=== PATIENT | female | born 1975 | race Caucasian/White ===

== ENCOUNTER 2016-10-12 09:45 | Emergency (ER) | payer MEDICAID ==
[~2016-10-12] VITALS: Ht 160 cm; Wt 90.7 kg
[~2016-10-12 09:45] MED LIST: ASPI-515 PO; LEVO25TA2 PO; SIMV20TA3 PO; TRAZ100T15 PO
[2016-10-12 09:47] VITALS: BP 124/84
[2016-10-12] MEDS ORDERED: BACITRACIN ZINC OINT 500U/GM, 0.9 GM ONE ×2 (11:13→11:26)
[2016-10-12 12:59] LABS: HIV 1&2 ANTIBODY SCREEN Nonreactive (Nonreactive); HIV-1 p24 ANTIGEN Nonreactive (Nonreactive)
[2016-10-13 00:13] LABS: HEP B SURF. AB 6.3 mIU/mL (0.0-10.0)
== END 2016-10-12 11:33 | disposition home or self-care (01) ==
LOC: ED 10:25
DX: S61.031A Puncture wound without foreign body of right thumb without damage to nail, initial encounter (principal); F17.210 Nicotine dependence, cigarettes, uncomplicated; E78.5 Hyperlipidemia, unspecified; I10 Essential (primary) hypertension; E11.9 Type 2 diabetes mellitus without complications; W19.XXXA Unspecified fall, initial encounter; Y93.89 Activity, other specified; Y92.89 Other specified places as the place of occurrence of the external cause; Y99.8 Other external cause status
CPT/HCPCS: 36415; 86703; 86705; 86706; 86803; 87340; 87899; 99284; G0435

== ENCOUNTER 2016-11-07 18:02 | Emergency (ER) | payer MEDICAID ==
[~2016-11-07] VITALS: Ht 160 cm; Wt 90.5 kg
[2016-11-07 18:16] VITALS: BP 118/80
[2016-11-07] MEDS ORDERED: ACETAMINOPHEN 325 MG TABLET PO ONE (19:00)
[2016-11-07] MEDS ORDERED: ACETAMINOPHEN 325 MG TABLET ONE (19:42)
== END 2016-11-07 19:50 | disposition home or self-care (01) ==
LOC: ED 19:44
DX: S63.522A Sprain of radiocarpal joint of left wrist, initial encounter (principal); X50.9XXA Other and unspecified overexertion or strenuous movements or postures, initial encounter; Y93.89 Activity, other specified; Y99.8 Other external cause status; Y92.89 Other specified places as the place of occurrence of the external cause
CPT/HCPCS: 29125; 99284

== ENCOUNTER 2016-12-31 17:44 | Emergency (ER) | payer MEDICAID ==
[~2016-12-31] VITALS: Ht 160 cm; Wt 90.7 kg
[2016-12-31 17:48] VITALS: BP 141/84
== END 2016-12-31 19:39 | disposition home or self-care (01) ==
LOC: ED 18:00
DX: M77.9 Enthesopathy, unspecified (principal); M25.532 Pain in left wrist
CPT/HCPCS: 29125

== ENCOUNTER 2017-05-14 10:49 | Emergency (ER) | payer MEDICAID ==
[~2017-05-14] VITALS: Ht 160 cm; Wt 96.8 kg
[2017-05-14] MEDS ORDERED: KETOROLAC 30 MG/1 ML IM ONE (12:30)
[2017-05-14] MEDS ORDERED: KETOROLAC 30 MG/1 ML ONE (12:38)
[2017-05-14 13:21] VITALS: BP 142/105
== END 2017-05-14 13:24 | disposition home or self-care (01) ==
LOC: ED 13:18
DX: M79.662 Pain in left lower leg (principal); M72.2 Plantar fascial fibromatosis; G56.01 Carpal tunnel syndrome, right upper limb; G89.29 Other chronic pain; I10 Essential (primary) hypertension; E78.5 Hyperlipidemia, unspecified
CPT/HCPCS: 73590; 96372; 99284; J1885

== ENCOUNTER 2019-07-19 20:23 | Emergency (ER) | payer MEDICAID ==
[~2019-07-19] VITALS: Ht 160 cm; Wt 102.1 kg
[~2019-07-19 20:23] MED LIST changes: +SIMV20TA19 PO; -SIMV20TA3 PO; +TRAZ-175 PO; -TRAZ100T15 PO
--- NOTE | 2019-07-19 20:45 | NUR ---
DESIGN DIRECTOR: PT'S RIDE HOME TO CALL PER PT IF DISCHARGED. VALENTINA [phone], BACKUP CALL TO SIGNIFICANT OTHER MANAV [phone] IF VALENTINA DOES NOT ANSWER
[2019-07-19] MEDS ORDERED: ALBUTEROL SULFATE 2.5 MG/3 ML NPPB ONE (21:00)
[2019-07-19] MEDS ORDERED: ALBUTEROL SULFATE 2.5 MG/3 ML ONE ×2 (21:04→22:16)
--- NOTE | 2019-07-19 22:29 | NUR ---
SECOND BREATHING TREATMENT STARTED. PATIENT VERBALIZED UNDERSTANDING OF BREATHING TREATMENT AND METHODS OF INHALATION. NO NOTED ACUTE DISTRESS. PATIENT UPDATED ON PLAN OF CARE.
[2019-07-19] MEDS ORDERED: ALBUTEROL/IPRATROPIUM 2.5MG/0.5MG, 3 ML NPPB ONE (22:30)
[2019-07-19 22:40] VITALS: BP 154/81
--- NOTE | 2019-07-19 22:48 | NUR ---
PATIENT'S DC RIDE HOME CALLED.
== END 2019-07-19 22:56 | disposition home or self-care (01) ==
LOC: ED 21:31
DX: J45.31 Mild persistent asthma with (acute) exacerbation (principal); R94.31 Abnormal electrocardiogram [ECG] [EKG]
CPT/HCPCS: 71045; 93005; 94640; 99284; J7512; J7613

== ENCOUNTER 2019-10-23 21:16 | Emergency (ER) | payer MEDICAID ==
[~2019-10-23] VITALS: Ht 160 cm; Wt 95.3 kg
[2019-10-23] MEDS ORDERED: IBUPROFEN 600 MG TABLET PO ONE (22:00)
[2019-10-23] MEDS ORDERED: IBUPROFEN 600 MG TABLET ONE (22:11)
[2019-10-23 23:23] VITALS: BP 125/74
--- NOTE | 2019-10-23 23:24 | NUR ---
Splint applied by poured concrete wall technician. (+) CSM. Denies numbness/tingling. Verbalizes understanding r/t f/u care
== END 2019-10-23 23:25 | disposition home or self-care (01) ==
LOC: ED 21:47
DX: S63.522A Sprain of radiocarpal joint of left wrist, initial encounter (principal); M67.432 Ganglion, left wrist; I10 Essential (primary) hypertension; J45.909 Unspecified asthma, uncomplicated; Z86.39 Personal history of other endocrine, nutritional and metabolic disease; X50.1XXA Overexertion from prolonged static or awkward postures, initial encounter; Y93.89 Activity, other specified; Y92.098 Other place in other non-institutional residence as the place of occurrence of the external cause; Y99.8 Other external cause status
CPT/HCPCS: 29125; 99283

== ENCOUNTER 2020-04-13 09:59 | Emergency (ER) | payer MEDICAID ==
[~2020-04-13] VITALS: Ht 160 cm; Wt 99.2 kg
[~2020-04-13 09:59] MED LIST changes: -ASPI-515 PO; +ASPI-963 PO
[2020-04-13] MEDS ORDERED: ALBU18HF INH (11:26)
[2020-04-13] MEDS ORDERED: ALBUTEROL/IPRATROPIUM 2.5MG/0.5MG, 3 ML NPPB SCH (11:30)
[2020-04-13] MEDS ORDERED: ALBUTEROL/IPRATROPIUM 2.5MG/0.5MG, 3 ML ONE (11:31)
[2020-04-13 12:25] VITALS: BP 129/65
== END 2020-04-13 12:36 | disposition home or self-care (01) ==
LOC: ED 11:12
DX: J06.9 Acute upper respiratory infection, unspecified (principal); Z20.822 Contact with and (suspected) exposure to COVID-19; J40 Bronchitis, not specified as acute or chronic; R05 Cough; R09.81 Nasal congestion; M79.10 Myalgia, unspecified site; F17.210 Nicotine dependence, cigarettes, uncomplicated; Z86.39 Personal history of other endocrine, nutritional and metabolic disease
CPT/HCPCS: 94640; 99283; J7512; U0003

== ENCOUNTER → 2020-11-03 | Outpatient (CLI) | payer MEDICAID | END | disposition home or self-care (01) | LOC: CARD 09:21 | PROVIDERS: ATTEND Internal Medicine Cardiovascular Disease | DX: R00.2 Palpitations (principal) ==